=== PATIENT | female | born 1980 | race Caucasian/White ===

== ENCOUNTER 2024-01-07 09:18 | Outpatient (CLI) | payer BC ==
[2024-01-07 10:21] LABS: Hematocrit 39.3 % (34.9-44.5); Hemoglobin 13.1 g/dL (12.0-15.5); Mean Corpuscular HGB CONC 33.3 g/dL (32.0-36.0); Mean Corpuscular Hemoglobin 28.2 pg (27.0-33.0); Mean Corpuscular Volume 84.7 fL (81.6-98.3); Mean Platelet Volume 8.8 fL (7.4-10.4); Platelet Count 529 10x3/uL (150-450); RBC Distribution Width 13.7 % (11.5-14.5); Red Blood Cell (RBC) Count 4.64 10x6/uL (3.90-5.03); White Blood Cell (WBC) Count 12.2 10x3/uL (3.5-10.5)
[2024-01-07 10:43] LABS: BHCG - Serum Negative (NEGATIVE); Pregs Control Background? CLEAR/WHITE (CLR/WHITE); Pregs Control Bar Appear? YES (CONTROL BAR)
[2024-01-07 10:48] LABS: Anion Gap 17 mmol/L (10-20); BUN (Urea Nitrogen) 10 mg/dL (7.0-18.7); Calc. Creatinine Clearance 0 mL/min (70-130); Calcium 9.3 mg/dL (7.8-10.44); Carbon Dioxide 21 mmol/L (22-29); Chloride 102 mmol/L (98-107); Estimated GFR 94; Glucose 113 mg/dL (70-105); Potassium 4.1 mmol/L (3.5-5.1); Sodium 136 mmol/L (136-145)
== END 2024-01-07 09:19 | disposition home or self-care (01) ==
LOC: LABBT 09:18
PROVIDERS: ATTEND Otolaryngology Plastic Surgery within the Head & Neck
DX: Z01.818 Encounter for other preprocedural examination (principal); J34.2 Deviated nasal septum; J34.3 Hypertrophy of nasal turbinates; J35.01 Chronic tonsillitis; J35.3 Hypertrophy of tonsils with hypertrophy of adenoids; K13.79 Other lesions of oral mucosa
CPT/HCPCS: 80048; 84703; 85027; 93005; 93010

== ENCOUNTER 2024-01-13 12:27 | Day surgery (SDC) | payer BC ==
[2024-01-07 09:47] VITALS: BMI 44.9
== END 2024-01-13 17:34 | disposition home or self-care (01) ==
LOC: SDC 12:27
PROVIDERS: ATTEND Otolaryngology Plastic Surgery within the Head & Neck
PROC: 0CTPXZZ Resection of Tonsils, External Approach (ICD-10-PCS; principal; 2024-01-13)
PROC: 0CTQXZZ Resection of Adenoids, External Approach (ICD-10-PCS; principal; 2024-01-13)
PROC: 09BM8ZZ Excision of Nasal Septum, Via Natural or Artificial Opening Endoscopic (ICD-10-PCS; principal; 2024-01-13)
PROC: 09TL7ZZ Resection of Nasal Turbinate, Via Natural or Artificial Opening (ICD-10-PCS; principal; 2024-01-13)
PROC: 0CTNXZZ Resection of Uvula, External Approach (ICD-10-PCS; principal; 2024-01-13)
DX: J35.3 Hypertrophy of tonsils with hypertrophy of adenoids (principal); J35.01 Chronic tonsillitis; K13.79 Other lesions of oral mucosa; J34.2 Deviated nasal septum; J34.3 Hypertrophy of nasal turbinates; J34.89 Other specified disorders of nose and nasal sinuses
CPT/HCPCS: 88302; 88304; J0171; J0360; J1030; J1100; J1200; J2001; J2405; J2704; J3010; Q0162